=== PATIENT | male | born 2000 | race Two or more races ===

== ENCOUNTER 2023-04-13 13:47 | Emergency (ER) | payer OTHER ==
[2023-04-13 14:01] VITALS: BP 134/87; PULSE 88; RESP 20; TEMP 98.6; BMI 26.9
[2023-04-13] MEDS ORDERED: IBUPROFEN 600 MG TABLET (FP) PO ONE ×2 (14:15→14:16)
== END 2023-04-13 14:48 | disposition home or self-care (01) ==
LOC: JER 13:47 → JERFT 13:47
DX: S46.811A Strain of other muscles, fascia and tendons at shoulder and upper arm level, right arm, initial encounter (principal); S20.211A Contusion of right front wall of thorax, initial encounter; S60.221A Contusion of right hand, initial encounter; M54.50 Low back pain, unspecified; V43.02XA Car driver injured in collision with other type car in nontraffic accident, initial encounter
CPT/HCPCS: 71046-TC-FY; 73130-TC-LT-FY; 93005; 93010; 99284-25